=== PATIENT | male | born 1995 | race Caucasian/White ===

== ENCOUNTER 2016-06-08 17:49 | Emergency (ER) | payer OTHER ==
[2016-06-08] MEDS ORDERED: IOPAMIDOL 370 (76%) 100 ML VIAL IV ONE (17:50)
[2016-06-08] MEDS ORDERED: HYDROMORPHONE HCL 1 MG/ML SYRINGE ONE (17:59)
[2016-06-08] MEDS ORDERED: ONDANSETRON 4 MG/2ML 2 ML VIAL ONE (17:59)
[2016-06-08] MEDS ORDERED: LACTATED RINGERS 1,000 ML ONE (17:59)
[2016-06-08 18:08] LABS: ABSOLUTE NEUTROPHIL COUNT 8.3 K/mm3 (1.8-7.7); BASO % 0.2 % (0.2-1.0); EOS # 0.2 (0.0-0.5); EOS % 1.2 % (0.9-2.9); HEMOGLOBIN 14.8 gm/l (14.0-18.0); IMM NEUT% 0.3 % (0-1); LYMPH # 3.8 (1.0-4.8); LYMPH % 28.8 % (15-45); MEAN CELL VOLUME 87.6 fl (80.0-94.0); MEAN CORPUSCULAR HEMOGLOBIN 30.1 pg (27.0-31.0); MEAN CORPUSCULAR HGB CONC 34.4 g/dl (33.0-37.0); MEAN PLATELET VOLUME 9.2 fl (7.4-10.4); MONO # 0.7 (0.0-0.8); MONO % 5.5 % (4-12); PLATELET COUNT 249 K/mm3 (130-400); RED CELL DISTRIBUTION WIDTH 11.8 % (11.5-14.5)
[2016-06-08 18:30] LABS: ALB/GLOB RATIO 1.7 (>1.0); ALBUMIN 4.7 gm/dL (3.5-5.7); CALCIUM 10.1 mg/dL (8.6-10.3)
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
== END 2016-06-08 19:54 | disposition short-term general hospital (02) ==
LOC: ED 17:49
DX: S06.0X9A Concussion with loss of consciousness of unspecified duration, initial encounter (principal); S02.82XA Fracture of other specified skull and facial bones, left side, initial encounter for closed fracture; S80.212A Abrasion, left knee, initial encounter; S43.005A Unspecified dislocation of left shoulder joint, initial encounter; V29.40XA Motorcycle driver injured in collision with unspecified motor vehicles in traffic accident, initial encounter; Y92.410 Unspecified street and highway as the place of occurrence of the external cause
CPT/HCPCS: 85025; 80053; 80307; 74177; 72125; 70450; 71260; 96375; 99285 ×2; 96374; J1170; J2405; J7120; Q9967